=== PATIENT | female | born 1995 | race Caucasian/White ===

== ENCOUNTER 2021-01-17 10:45 | Inpatient (IN) | payer OTHER ==
[~2021-01-17] VITALS: Ht 162.6 cm; Wt 79.4 kg
[2021-01-21] MEDS ORDERED: PRENATABS RX T1 EACH (13:54)
== END 2021-01-24 10:59 | disposition home or self-care (01) | DRG 788 ==
LOC: SURH 01-21 10:45 → OB/GYN 01-21 13:39 → LDR 01-21 13:39 → OB/GYN 01-21 23:17
PROVIDERS: ADMIT Obstetrics & Gynecology; ATTEND Obstetrics & Gynecology
PROC: 4A1HXFZ Monitoring of Products of Conception, Cardiac Rhythm, External Approach (ICD-10-PCS; 2021-01-21)
PROC: 10D00Z1 Extraction of Products of Conception, Low, Open Approach (ICD-10-PCS; principal; 2021-01-21 20:30)
DX: O65.8 Obstructed labor due to other maternal pelvic abnormalities (principal); O62.1 Secondary uterine inertia; O42.02 Full-term premature rupture of membranes, onset of labor within 24 hours of rupture; Z37.0 Single live birth; Z3A.40 40 weeks gestation of pregnancy